=== PATIENT | female | born 1960 | race Caucasian/White ===

== ENCOUNTER 2019-01-11 15:15 | Emergency (ER) | payer OTHER ==
[2019-01-11] MEDS ORDERED: Acetaminophen 325 MG Tab PO ONE (16:07)
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
== END 2019-01-11 18:46 | disposition home or self-care (01) ==
LOC: JP.ED 15:15
DX: S06.0X0A Concussion without loss of consciousness, initial encounter (principal); S03.40XA Sprain of jaw, unspecified side, initial encounter; S80.01XA Contusion of right knee, initial encounter; S60.511A Abrasion of right hand, initial encounter; S60.811A Abrasion of right wrist, initial encounter; S60.512A Abrasion of left hand, initial encounter; V18.9XXA Unspecified pedal cyclist injured in noncollision transport accident in traffic accident, initial encounter
CPT/HCPCS: 73110; 73562; 73630; 99283; A9270